=== PATIENT | female | born 1950 | race Caucasian/White ===

== ENCOUNTER 2018-10-26 15:26 | Emergency (ER) | payer BC, MEDICARE ==
[~2018-10-26] VITALS: Ht 157.5 cm; Wt 68.0 kg
[2018-10-26 16:55] VITALS: BP 164/65
[2018-10-26] MEDS ORDERED: InsuLIN REG 1unit/0.01ml Soln (100units/ml) SC ONE (17:15)
== END 2018-10-26 17:52 | disposition home or self-care (01) ==
LOC: ER 15:26
DX: E11.65 Type 2 diabetes mellitus with hyperglycemia (principal); Z76.0 Encounter for issue of repeat prescription; Z88.0 Allergy status to penicillin
CPT/HCPCS: 82962